=== PATIENT | male | born 1955 | race Two or more races ===

== ENCOUNTER 2025-01-17 21:45 | Inpatient (IN) | payer OTHER, MEDICAID ==
[~2025-01-17] VITALS: Ht 172.7 cm; Wt 79.2 kg
[2025-01-17] MEDS: SODIUM CHLORIDE 0.9% 1,000 ML IV ONE (22:50)
[2025-01-17 23:00] LABS: Hematocrit 40.1 % (41.0-53.0); Hemoglobin 13.4 g/dL (13.5-17.5); Mean Corpuscular Hemoglobin 31.5 pg (28.0-32.0); Mean Corpuscular Volume 94.5 fL (80.0-100.0); Nucleated Red Blood Cells % 0.1 %
[2025-01-17 23:08] LABS: Chloride 106 mmol/L (98-107); Potassium 4.1 mmol/L (3.5-5.1); Sodium 139 mmol/L (136-145)
[2025-01-17 23:09] LABS: Anion Gap 10 (5-15); Calcium 7.9 mg/dL (8.7-10.4); Carbon Dioxide 23 mmol/L (20-31)
[2025-01-17 23:14] LABS: BUN/Creatinine Ratio 5.8 (10.0-20.0); Glucose 98 mg/dL (74-106)
[2025-01-17 23:15] LABS: Blood Urea Nitrogen 7 mg/dL (9-23)
--- NOTE | 2025-01-17 23:27 | ED.PDOC ---
History of Present Illness HPI Comments 69 y/o M is BIBA from private residence for c/c of syncope. Significant history for anxiety, asthma, HLD, and HTN. Per EMS personnel report, patient had a sudden and unprovoked syncopal episode onset, while sitting and watching television with at home, an hour ago, this evening. is reported to have given the patient 1mg IM Narcan prior to arrival. On scene, patient was noted to have been hypotensive and bradycardic. At time of assessment, patient has no recollection of events aside from watching television and having no prior ailments or symptoms and feeling dizzy when coming-to en route to ED. No endorsed recent injuries, stressor, substance use, or additional pertinent lizzeth nts or history. He states, now, on feeling mildly weak but better. Denies any further acute symptoms. REVIEW OF SYSTEMS: General: No fever, no chills, HEENT: No neck pain, no blurred vision Cardiac: Syncope. No chest pain. No palpitations. Lungs: No shortness of breath, GI: No abdominal pain, no vomiting Musculoskeletal: No joint pain , no back pain Skin: No rash, no wound Neuro: Weakness. No headache, no dizziness, no syncope PHYSICAL EXAM: General: Awake, alert and oriented. No acute distress. Skin: Skin in warm, dry and intact without rashes or lesions. HEENT: The head is normocephalic and atraumatic. Conjunctivae are clear without exudates or hemorrhage. Sclera is non-icteric. Neck: Normal range of motion. No JVD. Cardiac: Regular rate Respiratory: No signs of respiratory distress. No Stridor. Extremities: Upper and lower extremities are atraumatic in appearance without deformity. Neurological: The patient is awake, alert and oriented to person, place, and time with normal speech. Speech is clear. There is no facial asymmetry. Psychiatric: Appropriate mood and affect. Good judgement and insight. Chief Complaint: Syncope Time Seen by MD: 22:30 Reviewed Notes: Nurses Notes, Boarder Steam Notes, Medications, Allergies Allergies: Coded Allergies: NO KNOWN ALLERGIES (Unverified , 01/17/25) Information Source: Patient, Emergency Med Personnel Mode of Arrival: EMS Severity: Moderate Timing: Hours Duration: Minutes Prehospital treatment: 12 Lead EKG, Accucheck, Scraper Tender, Other (Narcan ) Past Medical History PAST MEDICAL HISTORY: Anxiety (On diazepam), Asthma, High Lipids, HTN Surgical History (Other): back surgery Social History Smoker: Non-Smoker Alcohol: Occasionally Drugs: Denies Drug Use Lives In: Home Was a procedure done? Was a procedure done?: No EKG EKG : Pulse Rate (adult): 82 [place]: Normal Cardiac Rhythm: NSR Block: None Hypertrophy: None ST: Normal Differential Dx Considerations may include: Differential diagnoses considered include but are not limited to cardiac structural disease, arrhythmia, acute coronary syndrome, orthostasis, pulmonary embolism, dissection, seizure, basilar stroke, other. X-Ray, Labs, Meds, VS Vital Signs Date Time Temp Pulse Resp B/P (MAP) Pulse Ox O2 Delivery O2 Flow Rate FiO2 01/18/25 02:12 88 123/67 91 124/77 100 107/72 01/18/25 01:00 87 13 100/55 (70) 96 01/18/25 00:00 88 01/18/25 00:00 89 13 99/60 (73) 99 01/17/25 23:27 82 01/17/25 23:00 85 11 104/65 (78) 98 01/17/25 22:00 92 11 95/47 (63) 95 01/17/25 21:52 98.3 82 18 84/52 100 98.3 01/17/25 21:47 82 Lab Test 01/18/25 02:05 01/18/25 01:49 01/17/25 23:39 01/17/25 22:51 Range/Units Urine Color Light-yellow Yellow Urine Clarity Clear Clear Urine pH 5.5 5.0-9.0 Urine Specific [place] 1.007 1.001-1.035 Urine Protein Negative Negative Urine Ketones Trace Negative Urine Blood Negative Negative /uL Urine Nitrite Negative Negative Urine Bilirubin Negative Negative Urine Urobilinogen Normal Negative mg/dL Urine Leukocyte Esterase Negative Negative /uL Urine RBC None seen 0 - 3 /hpf Urine Microscopic WBC 1 0-3 /HPF Urine Squamous Epithelial Cells None seen <5 /hpf Urine Bacteria None seen None Seen /hpf Urine Glucose Normal Normal mg/dL Urine Opiates Screen Neg NEGATIVE Urine Fentanyl Screen Neg NEGATIVE Urine Barbiturates Screen Neg NEGATIVE Urine Phencyclidine Screen Neg NEGATIVE Urine Amphetamines Screen Neg NEGATIVE Urine Benzodiazepines Screen Pos NEGATIVE Urine Cocaine Screen Neg NEGATIVE Urine Cannabinoids Screen Pos NEGATIVE Troponin I High Sensitivity 3 L 3 L 4 </=54 ng/L Plasma/Serum Blood Alcohol 23.1 H <10 mg/dL Thyroid Stimulating Hormone (TSH) 6.76 H 0.55-4.78 uIU/mL White Blood Count 7.6 4.4-10.8 10^3/uL Red Blood Count 4.24 L 4.5-5.90 10^6/uL Hemoglobin 13.4 L 13.5-17.5 g/dL Hematocrit 40.1 L 41.0-53.0 % Mean Corpuscular Volume 94.5 80.0-100.0 fL Mean Corpuscular Hemoglobin 31.5 28.0-32.0 pg Mean Corpuscular Hemoglobin Concent 33.3 32.0-36.0 g/dL Red Cell Distribution Width 13.9 11.8-14.3 % Platelet Count 253 140-450 10^3/uL Mean Platelet Volume 6.8 L 6.9-10.8 fL Neutrophils (%) (Auto) 69.6 37.0-80.0 % Lymphocytes (%) (Auto) 21.6 10.0-50.0 % Monocytes (%) (Auto) 6.7 0.0-12.0 % Eosinophils (%) (Auto) 1.2 0.0-7.0 % Basophils (%) (Auto) 0.9 0.0-2.0 % Neutrophils # (Auto) 5.3 1.6-8.6 10 ^3/uL Lymphocytes # (Auto) 1.6 0.4-5.4 10 ^3/uL Monocytes # (Auto) 0.5 0-1.3 10 ^3/uL Eosinophils # (Auto) 0.1 0-0.8 10 ^3/uL Basophils # (Auto) 0.1 0-0.2 10 ^3/uL Nucleated Red Blood Cells 0.1 % Sodium Level 139 136-145 mmol/L Potassium Level 4.1 3.5-5.1 mmol/L Chloride Level 106 98-107 mmol/L Carbon Dioxide Level 23 20-31 mmol/L Anion Gap 10 5-15 Blood Urea Nitrogen 7 L 9-23 mg/dL Creatinine 1.21 0.700-1.30 mg/dL Glomerular Filtration Rate Calc 65 >90 mL/min BUN/Creatinine Ratio 5.8 L 10.0-20.0 Serum Glucose 98 74-106 mg/dL Calcium Level 7.9 L 8.7-10.4 mg/dL B-Type Natriuretic Peptide 18.83 0-100 pg/mL Current Medications Medications (Trade) Dose Ordered Sig/Gelacio Route Start Time Stop Time Status Last Admin Sodium Chloride 1,000 ml @ 1,000 mls/hr Q1H ONCE IV 01/17/25 22:45 01/17/25 23:44 DC 01/17/25 22:50 Time of 1ST Reevaluation: 23:00 Reevaluation 1ST: Unchanged Patient Education/Counseling: Treatment Family Education/Counseling: No Family Present SEPSIS Sepsis Screen Date sepsis recognized/suspect: Jan 17, 2025 Time Sepsis recognized/suspect: 2157 Recent Procedure: No On Antibiotic Therapy: No Respiratory Rate >20: No Heart Rate >90: No Temp<36 C (96.8 F) or >38.3 C: No SBP <90 or MAP <65 mmHG: Yes New Acute Mental Status Change: No Is the patient on CPAP, BIPAP,: No Physician Orders Scraper Tender (01/17/25 ) Orthostatic Vital Signs (01/17/25 ) Saline Lock (01/17/25 22:34) Fall Precautions Initiated (01/17/25 22:34) Chest Xray 1 View (01/18/25 01:03) Head Without Contrast (01/18/25 01:53) Vital Signs Date Time Temp Pulse Resp B/P (MAP) Pulse Ox O2 Delivery O2 Flow Rate FiO2 01/18/25 02:12 88 123/67 91 124/77 100 107/72 01/18/25 01:00 87 13 100/55 (70) 96 01/18/25 00:00 88 01/18/25 00:00 89 13 99/60 (73) 99 01/17/25 23:27 82 01/17/25 23:00 85 11 104/65 (78) 98 01/17/25 22:00 92 11 95/47 (63) 95 01/17/25 21:52 98.3 82 18 84/52 100 98.3 01/17/25 21:47 82 Laboratory Tests Test 01/17/25 22:51 White Blood Count 7.6 10^3/uL (4.4-10.8) Medications Medications Dose Ordered Sig/Gelacio Route Start Time Stop Time Status Last Admin Dose Admin Sodium Chloride 1,000 ml @ 1,000 mls/hr Q1H ONCE IV 01/17/25 22:45 01/17/25 23:44 DC 01/17/25 22:50 Departure 1 Departure Time of Disposition: 01:04 Impression: Primary Impression: Syncope Disposition: ADMITTED INPATIENT Condition: Stable Comments MDM: Patient admitted to hospitalist service for further treatment, evaluation and monitoring. Critical Care Note Critical Care Time?: No Stability Stability form required: No Heart Score Heart Score: Heart Score Response (Comments) Value History N/A 0 EKG N/A 0 Age N/A 0 Risk Factors N/A 0 Troponin N/A 0 Total 0 I personally scribed for NORMA JAY MD ([email or web address]) on 01/17/25 at 23:27. Electronically submitted by Kamaljit Nielson ([email or web address]). I personally scribed for NORMA JAY MD ([email or web address]) on 01/17/25 at 23:29. Electronically submitted by Kamaljit Nielson ([email or web address]). NORMA JAY MD Jan 17, 2025 23:27
[2025-01-18] VITALS (10 sets, daily range): BP systolic 101–133; BP diastolic 70–86; PULSE 67–92; RESP 16–18; TEMP 97.3–98.5; O2SAT 92–99
--- NOTE | 2025-01-18 01:29 | DVH ---
CHEST RADIOGRAPH Indication: Syncope Technique: Single frontal view of the chest was obtained COMPARISON: XY CHEST PORTABLE on DOS: 08/19/22, CHEST TWO VIEWS ROUTINE on DOS: 01/07/20 FINDINGS: Lines and Tubes: None Lungs: Clear Pleura: No effusion. No pneumothorax. Cardiomediastinal contours: Unremarkable Bones: Unremarkable IMPRESSION: 1. No acute disease.
[2025-01-18] MEDS: MIDODRINE HCL 10 MG TAB PO ONE (02:29)
--- NOTE | 2025-01-18 02:34 | DVH ---
EXAM: CT HEAD WITHOUT CONTRAST INDICATION: syncope TECHNIQUE: CT of the head without intravenous contrast. Radiation Dose : 1. Head: CT Dose: CTDI volume is 60.16 mGy. Dose-length product is 843.98 mGy*cm The dose indicators for CT are the volume Computed Tomography (CT) Dose Index (CTDIvol) and the Dose Length Product (DLP), and are measured in units of mGy and mGy-cm, respectively. These indicators are not patient dose, but values generated from the CT scanner acquisition factors. The report includes radiation exposure data for exposures received during this examination. COMPARISON: CT HEAD WITHOUT CONTRAST on DOS: 08/19/22, BRAIN HEAD WO CONTRAST on DOS: 08/26/19, HEAD WIT HOUT CONTRAST on DOS: 08/24/19 FINDINGS: There is no evidence of acute intracranial hemorrhage, extra-axial collection, mass effect, midline s hift, herniation or hydrocephalus. The ventricles, sulci and cisterns are age appropriate. The lopez-white differentiation is intact. Patchy periventricular and subcortical white matter hypoattenuation is nonspecific but may be related to small vessel ischemic disease. The visualized paranasal sinuses and mastoid air cells are clear. The surrounding soft tissues and osseous structures are unremarkable. IMPRESSION: 1. No acute intracranial abnormality. Radiation optimization: All CT scans at this facility use at least one of these dose optimization cydney hniques: automated exposure control mA and/or kV adjustment per patient size (includes targeted exam s where dose is matched to clinical indication) or iterative reconstruction.
[2025-01-18 03:04] LABS: Urine Protein, UAD Negative (Negative)
[2025-01-18 03:11] LABS: Opiate Scree,Urine Neg (NEGATIVE)
[2025-01-18 03:12] LABS: Amphetamine Screen, Urine Neg (NEGATIVE); Barbiturate Scree,Urine Neg (NEGATIVE); Benzodiazephine Screen, Urine Pos (NEGATIVE); Cannabinoid Screen, Urine Pos (NEGATIVE); Cocaine Screen, Urine Neg (NEGATIVE); Phencyclidine Screen, Urine Neg (NEGATIVE)
--- NOTE | 2025-01-18 03:36 | ECG ---
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
--- NOTE | 2025-01-18 04:12 | DVHHP2 ---
History of Present Illness Reason for Visit: Syncope History of Present Illness 69-year-old male presents for evaluation of syncopal episode. Patient presents after having a syncopal episode while watching TV. Patient does not remember how he ended up in the emergency department. Patient arrived with a blood pressure in the 60s. Currently denies chest pain or dizziness. Reports generalized weakness. No other acute complaints reported. Past Medical History Asthma, dyslipidemia and hypertension Past Surgical History Back surgery Family History Noncontributory Smoke: No ALCOHOL: none Drugs: Marijuana Lives: with Family Review of Systems Review of Systems Review of systems are currently negative otherwise addressed in HPI. Allergies: Coded Allergies: NO KNOWN ALLERGIES (Unverified , 01/17/25) Medications Current Medications Medications Dose Ordered Sig/Gelacio Route Start Time Stop Time Status Last Admin Dose Admin Albuterol 2.5 mg Q6HPRN PRN NEB 01/18/25 04:15 Ondansetron HCl 4 mg Q4HP PRN IV 01/18/25 04:15 Acetaminophen 650 mg Q6HP PRN PO 01/18/25 04:15 Exam Vital Signs Vital Signs Date Time Temp Pulse Resp B/P (MAP) Pulse Ox O2 Delivery O2 Flow Rate FiO2 01/18/25 02:48 89 17 Room Air* 0 21 01/18/25 02:48 97.8 128/79 (95) 99 97.8 Exam Gen: 69-year-old male in mild distress Skin: Warm, dry, normal color and texture, no rash. HEENT: Normocephalic atraumatic, mucous membranes moist and pink. Neck: Cervical and supraclavicular nodes normal without enlargement, trachea is midline, thyroid gland is normal without masses. Pulmonary: Clear to auscultation and percussion bilaterally. Cardiac: Regular rate and rhythm. No murmur Abdomen: Soft, nontender, nondistended, bowel sounds present all 4 quadrants, no guarding, no rigidity, no organomegaly. Extremities: No cyanosis, clubbing, no edema Neuro: Cranial nerves II through XII grossly intact, normal affect and speech, no focal motor deficits. Labs/Xrays ORDERING PHYSICIAN: DIRK ALMAZAN PROCEDURE(s): HWOCT - HEAD WITHOUT CONTRAST REASON: syncope ORDER NUMBER(s): [id number], ACCESSION NUMBER(s): [id number] EXAM: CT HEAD WITHOUT CONTRAST INDICATION: syncope TECHNIQUE: CT of the head without intravenous contrast. Radiation Dose : 1. Head: CT Dose: CTDI volume is 60.16 mGy. Dose-length product is 843.98 mGy*cm The dose indicators for CT are the volume Computed Tomography (CT) Dose Index (CTDIvol) and the Dose Length Product (DLP), and are measured in units of mGy and mGy-cm, respectively. These indicators are not patient dose, but values generated from the CT scanner acquisition factors. The report includes radiation exposure data for exposures received during this examination. COMPARISON: CT HEAD WITHOUT CONTRAST on DOS: 08/19/22, BRAIN HEAD WO CONTRAST on DOS: 08/26/19, HEAD WITHOUT CONTRAST on DOS: 08/24/19 FINDINGS: There is no evidence of acute intracranial hemorrhage, extra-axial collection, mass effect, midline shift, herniation or hydrocephalus. The ventricles, sulci and cisterns are age appropriate. The lopez-white differentiation is intact. Patchy periventricular and subcortical white matter hypoattenuation is nonspecific but may be related to small vessel ischemic disease. The visualized paranasal sinuses and mastoid air cells are clear. The surrounding soft tissues and osseous structures are unremarkable. IMPRESSION: 1. No acute intracranial abnormality. Radiation optimization: All CT scans at this facility use at least one of these dose optimization techniques: automated exposure control mA and/or kV adjustment per patient size (includes targeted exams where dose is matched to clinical indication) or iterative reconstruction. RING PHYSICIAN: NORMA JAY MD PROCEDURE(s): CXR1 - CHEST XRAY 1 VIEW REASON: Syncope ORDER NUMBER(s): [id number], ACCESSION NUMBER(s): [id number] CHEST RADIOGRAPH Indication: Syncope Technique: Single frontal view of the chest was obtained COMPARISON: XY CHEST PORTABLE on DOS: 08/19/22, CHEST TWO VIEWS ROUTINE on DOS: 01/07/20 FINDINGS: Lines and Tubes: None Lungs: Clear Pleura: No effusion. No pneumothorax. Cardiomediastinal contours: Unremarkable Bones: Unremarkable IMPRESSION: 1. No acute disease. Labs Test 01/18/25 02:05 01/18/25 01:49 01/17/25 23:39 01/17/25 22:51 Range/Units Urine Color Light-yellow Yellow Urine Clarity Clear Clear Urine pH 5.5 5.0-9.0 Urine Specific [place] 1.007 1.001-1.035 Urine Protein Negative Negative Urine Ketones Trace Negative Urine Blood Negative Negative /uL Urine Nitrite Negative Negative Urine Bilirubin Negative Negative Urine Urobilinogen Normal Negative mg/dL Urine Leukocyte Esterase Negative Negative /uL Urine RBC None seen 0 - 3 /hpf Urine Microscopic WBC 1 0-3 /HPF Urine Squamous Epithelial Cells None seen <5 /hpf Urine Bacteria None seen None Seen /hpf Urine Glucose Normal Normal mg/dL Urine Opiates Screen Neg NEGATIVE Urine Fentanyl Screen Neg NEGATIVE Urine Barbiturates Screen Neg NEGATIVE Urine Phencyclidine Screen Neg NEGATIVE Urine Amphetamines Screen Neg NEGATIVE Urine Benzodiazepines Screen Pos NEGATIVE Urine Cocaine Screen Neg NEGATIVE Urine Cannabinoids Screen Pos NEGATIVE Troponin I High Sensitivity 3 L </=54 ng/L Plasma/Serum Blood Alcohol 23.1 H <10 mg/dL Thyroid Stimulating Hormone (TSH) 6.76 H 0.55-4.78 uIU/mL White Blood Count 7.6 4.4-10.8 10^3/uL Red Blood Count 4.24 L 4.5-5.90 10^6/uL Hemoglobin 13.4 L 13.5-17.5 g/dL Hematocrit 40.1 L 41.0-53.0 % Mean Corpuscular Volume 94.5 80.0-100.0 fL Mean Corpuscular Hemoglobin 31.5 28.0-32.0 pg Mean Corpuscular Hemoglobin Concent 33.3 32.0-36.0 g/dL Red Cell Distribution Width 13.9 11.8-14.3 % Platelet Count 253 140-450 10^3/uL Mean Platelet Volume 6.8 L 6.9-10.8 fL Neutrophils (%) (Auto) 69.6 37.0-80.0 % Lymphocytes (%) (Auto) 21.6 10.0-50.0 % Monocytes (%) (Auto) 6.7 0.0-12.0 % Eosinophils (%) (Auto) 1.2 0.0-7.0 % Basophils (%) (Auto) 0.9 0.0-2.0 % Neutrophils # (Auto) 5.3 1.6-8.6 10 ^3/uL Lymphocytes # (Auto) 1.6 0.4-5.4 10 ^3/uL Monocytes # (Auto) 0.5 0-1.3 10 ^3/uL Eosinophils # (Auto) 0.1 0-0.8 10 ^3/uL Basophils # (Auto) 0.1 0-0.2 10 ^3/uL Nucleated Red Blood Cells 0.1 % Sodium Level 139 136-145 mmol/L Potassium Level 4.1 3.5-5.1 mmol/L Chloride Level 106 98-107 mmol/L Carbon Dioxide Level 23 20-31 mmol/L Anion Gap 10 5-15 Blood Urea Nitrogen 7 L 9-23 mg/dL Creatinine 1.21 0.700-1.30 mg/dL Glomerular Filtration Rate Calc 65 >90 mL/min BUN/Creatinine Ratio 5.8 L 10.0-20.0 Serum Glucose 98 74-106 mg/dL Calcium Level 7.9 L 8.7-10.4 mg/dL B-Type Natriuretic Peptide 18.83 0-100 pg/mL SEPSIS Sepsis Screen Date sepsis recognized/suspect: Jan 17, 2025 Time Sepsis recognized/suspect: 2340 Recent Procedure: No On Antibiotic Therapy: No Respiratory Rate >20: No Heart Rate >90: No Temp<36 C (96.8 F) or >38.3 C: No SBP <90 or MAP <65 mmHG: No New Acute Mental Status Change: No Is the patient on CPAP, BIPAP,: No Physician Orders Furnace Roaster (01/17/25 ) Orthostatic Vital Signs (01/17/25 ) Saline Lock (01/17/25 22:34) Fall Precautions Initiated (01/17/25 22:34) Chest Xray 1 View (01/18/25 01:03) Head Without Contrast (01/18/25 01:53) Admit (01/18/25 02:13) Echo 2d Mode Cardiac Dop (01/18/25 02:13) Thyroid Panel (01/18/25 04:02) Basic Metabolic Panel (01/19/25 04:00) Albuterol Medneb (Ventolin Medneb) (01/18/25 04:15) Ondansetron Hcl (Zofran) (01/18/25 04:15) Cardiac Diet-2gna,Lofat,Lochol (01/18/25 Breakfast) Condition: Stable (01/18/25 04:02) Acetaminophen Tablet (Tylenol Tablet) (01/18/25 04:15) Bedrest With Bathroom Privileg (01/18/25 04:02) Vital Signs Date Time Temp Pulse Resp B/P (MAP) Pulse Ox O2 Delivery O2 Flow Rate FiO2 01/18/25 02:48 89 17 Room Air* 0 21 01/18/25 02:48 97.8 89 17 128/79 (95) 99 97.8 01/18/25 02:15 89 16 107/72 (84) 97 01/18/25 02:12 88 123/67 91 124/77 100 107/72 01/18/25 01:00 87 13 100/55 (70) 96 01/18/25 00:00 88 01/18/25 00:00 89 13 99/60 (73) 99 01/17/25 23:27 82 01/17/25 23:00 85 11 104/65 (78) 98 01/17/25 22:00 92 11 95/47 (63) 95 01/17/25 21:52 98.3 82 18 84/52 100 98.3 01/17/25 21:47 82 Laboratory Tests Test 01/17/25 22:51 White Blood Count 7.6 10^3/uL (4.4-10.8) Medications Medications Dose Ordered Sig/Gelacio Route Start Time Stop Time Status Last Admin Dose Admin Midodrine 10 mg ONCE ONCE PO 01/18/25 02:15 01/18/25 02:18 DC 01/18/25 02:29 10 MG Sodium Chloride 1,000 ml @ 1,000 mls/hr Q1H ONCE IV 01/17/25 22:45 01/17/25 23:44 DC 01/17/25 22:50 1,000 MLS/HR Assessment/Plan Assessment/Plan Assessment Symptomatic hypotension Hypothyroid Alcohol intoxication Plan Admit the patient to [facility] to the hospitalist Echocardiogram pending Thyroid panel pending Continue treatment per orders. Plan discussed with: Patient My Orders Orders - DIRK ALMAZANCNLit Procedure Category Date Status Time Head Without Contrast CT 01/18/25 Resulted 01:53 Admit ADMIT 01/18/25 Transmitted 02:13 Echo 2d Mode Cardiac US 01/18/25 Logged DOP 02:13 Thyroid Panel LAB 01/18/25 Logged 04:02 Basic Metabolic Panel LAB 01/19/25 Verified 04:00 Albuterol Medneb PHA 01/18/25 In Process (Ventolin Medneb) 04:15 Ondansetron Hcl PHA 01/18/25 In Process (Zofran) 04:15 Cardiac DIET 01/18/25 Transmitted Diet-2gna,Lofat,Lochol Breakfast Condition: Stable DIONNA 01/18/25 In Process 04:02 Acetaminophen Tablet PHA 01/18/25 In Process (Tylenol Tablet) 04:15 Bedrest With Bathroom DIONNA 01/18/25 In Process Privileg 04:02 Date of Service: Jan 18, 2025 Billing Provider: DIRK ALMAZAN Common Visit Codes: [id number] INP/OBS CARE (HIGH) DIRK ALMAZAN Jan 18, 2025 04:12
[2025-01-18] MEDS ORDERED: ONDANSETRON HCL 4 MG/2 ML VIAL IV PRN (04:15)
[2025-01-18] MEDS ORDERED: ACETAMINOPHEN 325 MG TAB PO PRN (04:15)
[2025-01-18] MEDS ORDERED: ALBUTEROL SULF 2.5 MG/0.5ML(0.5%) NEB SOLN NEB PRN (04:15)
[2025-01-18] MEDS: LEVOTHYROXINE SODIUM 25 MCG TAB PO SCH (06:30)
--- NOTE | 2025-01-18 14:03 | DVHPN2 ---
Assessment/Plan Assessment/Plan progress note 69 M with anxiety, HTN, admitted for syncope. pt was taking diazepam friday, [place] Friday and Friday night drink 3 beers before he syncopized. taking cozaar 50 BID. hypotensive on admission. orthostatic negative seen today, will hold bp meds benzo. physical exam aox4 clear breath sounds s1 s2 rrr abdomen nontender no LE edema labs ekg imaging reviewed assessment and plan HTN anxiety syncope likely med related alcohol use hypothyroidism? t3 t4 hold bp meds will start lower dose hold benzo diet cardiac dvt ppx lvoenox full code Plan discussed with: Patient Date of Service: Jan 18, 2025 Billing Provider: RACHEL LUONG MD Common Visit Codes: [id number] INP/OBS CARE(HIGH) RACHEL LUONG MD Jan 18, 2025 14:03
--- NOTE | 2025-01-18 21:59 | DVHSR ---
APPROVED REPORT EXAM: Two-dimensional and M-mode echocardiogram with Doppler and color Doppler. Blood Pressure: 128/79 mmHg INDICATION hypotension RISK FACTORS Height: 5'8, Weight: 171 DIMENSIONS LVDd4.6 (3.8-5.7cm)LA (2D)3.2 (1.9-4.0cm)Aortic Root3.3 (2.0-3.7cm) LVDs3.3 (2.5-4.0cm)LA (MM) (1.9-4.0cm)Aortic Cusp Exc1.8 (1.5-2.0cm) EF (%) 55.0 (55-70%)Rt. Atrium3.4 (1.9-4.0cm)Asc. Aorta3.0 cm IVSd0.8 (0.7-1.1cm)RV (D)3.4 (1.8-2.4cm) PWd1.0 (0.7-1.1cm) Mitral Valve MitralMitral Stenosis E wave0.67m/sMV Mean GR.mmHg A wave0.88m/sMV Peak GR.mmHg E/A ratio0.82D MVAcm2 DECEL [id number] 1/2 Timems Aortic Valve Aortic ValveAortic Stenosis V10.93m/Sy Mean GR.3mmHg V21.15m/Sy Peak GR.5mmHg LVOT Diameter2.1 (1.8-2.4cm)Doppler AVA2.80cm2 Pulmonic Valve V20.90m/s Other Information Technically limited study due to body habitus. Conclusion RA AND RV ARE SLIGHTLY DILATED LV EF IS 65% NORMAL VALVES NO EFFUSION
[2025-01-19] VITALS (8 sets, daily range): BP systolic 100–150; BP diastolic 72–88; PULSE 70–92; RESP 17–19; TEMP 97.5–98.6; O2SAT 93–99
[2025-01-19 07:14] LABS: Anion Gap 8 (5-15); Carbon Dioxide 27 mmol/L (20-31); Chloride 105 mmol/L (98-107); Potassium 4.0 mmol/L (3.5-5.1); Sodium 140 mmol/L (136-145)
[2025-01-19 07:16] LABS: Calcium 8.7 mg/dL (8.7-10.4)
[2025-01-19 07:17] LABS: Hematocrit 37.9 % (41.0-53.0); Hemoglobin 12.8 g/dL (13.5-17.5); Mean Corpuscular Hemoglobin 31.1 pg (28.0-32.0); Mean Corpuscular Volume 92.1 fL (80.0-100.0); Nucleated Red Blood Cells % 0.1 %
[2025-01-19 07:19] LABS: Glucose 88 mg/dL (74-106)
[2025-01-19 07:20] LABS: BUN/Creatinine Ratio 6.7 (10.0-20.0)
[2025-01-19 07:21] LABS: Blood Urea Nitrogen 6 mg/dL (9-23); Magnesium 2.1 mg/dL (1.6-2.6)
[2025-01-19 08:07] LABS: Free Thyroxine Index 1.3 (1.2-4.9)
--- NOTE | 2025-01-19 11:31 | DVHPN2 ---
Assessment/Plan Assessment/Plan progress note 69 M with anxiety, HTN, admitted for syncope. pt was taking diazepam friday, [place] Friday and Friday night drink 3 beers before he syncopized. taking cozaar 50 BID. hypotensive on admission. orthostatic negative seen today, bp improved. had hx of thyroid nodule, will redo us thyroid. continueing 25 mcg for now. physical exam aox4 clear breath sounds s1 s2 rrr abdomen nontender no LE edema labs ekg imaging reviewed assessment and plan HTN anxiety syncope likely med related alcohol use hypothyroidism? alergic rhinitis t3 t4 hold bp meds will start lower dose hold benzo us thyroid flonase diet cardiac dvt ppx lvoenox full code Plan discussed with: Patient Date of Service: Jan 19, 2025 Billing Provider: RACHEL LUONG MD Common Visit Codes: [id number] INP/OBS CARE(HIGH) RACHEL LUONG MD Jan 19, 2025 11:31
[2025-01-19] MEDS: LEVOTHYROXINE SODIUM 25 MCG TAB PO ONE (11:59)
--- NOTE | 2025-01-19 13:27 | DVH ---
ULTRASOUND SOFT TISSUE HEAD AND NECK CLINICAL INDICATION: hx of nodule TECHNIQUE: Multiple real time sonographic images of the thyroid were obtained. Comparison: US CAROTID DUPLX W COLOR DOP on DOS: 08/19/22, CAROTID DUPLX W COLOR DOP on DOS: 01/08/20 FINDINGS: The right thyroid gland measures 4.5 x 1.4 x 1.5 cm. The left thyroid gland measures approximately 4.1 x 1.7 x 1.7 cm. The isthmus measures 0.5 cm. Isoechoic 0.9 cm nodule in the left midpole, TR 3. IMPRESSION: 0.9 cm TR 3 nodule in the left midpole. [employer] TI-RADS Categories and Recommendations (2017): TR1: 0 points, Benign, No FNA TR2: 2 points, Not suspicious, No FNA TR3: 3 points, Mildly suspicious, FNA if > or = 2.5 cm, Follow if > or = 1.5 cm TR4: 4-6 points, Moderately Suspicious, FNA if > or = 1.5 cm, Follow if > or = 1.0 cm TR5: 7+ points, Highly Suspicious, FNA if > or = 1.0 cm, Follow if > or = 0.5 cm Follow-up ultrasound guidelines: TR5: yearly for 5 years, if no growth or change in TI-RADS level TR4: at 1, 2, 3 and 5 years, if no growth or change in TI-RADS level TR3: at 1, 3 and 5 years, if no growth or change in TI-RADS level If increased but below threshold for FNA, repeat in one year. Source: ACR Thyroid Imaging, Reporting and Data System (TI-RADS): White Paper of the A[employer] TI-RADS Committee. Loli et al., J Am Katelynn Radiol 2017;14:587-595.
[2025-01-19] MEDS: FLUTICASONE PROP NASAL SPR 0.05 % (50MCG) 16GM EACHNOSTRI SCH (21:20)
[2025-01-20 01:00] VITALS: BP 127/67; PULSE 77; RESP 18; TEMP 98.5; O2SAT 97
[2025-01-20 05:00] VITALS: BP 119/77; PULSE 76; RESP 18; TEMP 98.1; O2SAT 96
[2025-01-20] MEDS: LEVOTHYROXINE SODIUM 25 MCG TAB PO SCH (05:38)
[2025-01-20 08:00] VITALS: RESP 18
[2025-01-20 08:11] VITALS: O2SAT 98
[2025-01-20 09:00] VITALS: BP 142/78; PULSE 70; RESP 18; TEMP 98.4; O2SAT 97
[2025-01-20] MEDS ORDERED: LEVO25TA6 PO (11:12)
[2025-01-20 11:30] VITALS: TEMP 36.9
--- NOTE | 2025-01-21 11:08 | DVHDS2 ---
Discharge Summary Date of Admission Jan 18, 2025 at 02:13 Date of Discharge: Jan 20, 2025 Labs/Diagnostic Data: Laboratory Results Test 01/19/25 05:55 01/18/25 05:26 01/18/25 02:05 01/18/25 01:49 White Blood Count 6.1 10^3/uL (4.4-10.8) Red Blood Count 4.11 10^6/uL (4.5-5.90) Hemoglobin 12.8 g/dL (13.5-17.5) Hematocrit 37.9 % (41.0-53.0) Mean Corpuscular Volume 92.1 fL (80.0-100.0) Mean Corpuscular Hemoglobin 31.1 pg (28.0-32.0) Mean Corpuscular Hemoglobin Concent 33.8 g/dL (32.0-36.0) Red Cell Distribution Width 14.0 % (11.8-14.3) Platelet Count 259 10^3/uL (140-450) Mean Platelet Volume 7.3 fL (6.9-10.8) Neutrophils (%) (Auto) 62.3 % (37.0-80.0) Lymphocytes (%) (Auto) 28.0 % (10.0-50.0) Monocytes (%) (Auto) 7.0 % (0.0-12.0) Eosinophils (%) (Auto) 1.5 % (0.0-7.0) Basophils (%) (Auto) 1.2 % (0.0-2.0) Neutrophils # (Auto) 3.8 10 ^3/uL (1.6-8.6) Lymphocytes # (Auto) 1.7 10 ^3/uL (0.4-5.4) Monocytes # (Auto) 0.4 10 ^3/uL (0-1.3) Eosinophils # (Auto) 0.1 10 ^3/uL (0-0.8) Basophils # (Auto) 0.1 10 ^3/uL (0-0.2) Nucleated Red Blood Cells 0.1 % Sodium Level 140 mmol/L (136-145) Potassium Level 4.0 mmol/L (3.5-5.1) Chloride Level 105 mmol/L (98-107) Carbon Dioxide Level 27 mmol/L (20-31) Anion Gap 8 (5-15) Blood Urea Nitrogen 6 mg/dL (9-23) Creatinine 0.89 mg/dL (0.700-1.30) Glomerular Filtration Rate Calc 93 mL/min (>90) BUN/Creatinine Ratio 6.7 (10.0-20.0) Serum Glucose 88 mg/dL (74-106) Calcium Level 8.7 mg/dL (8.7-10.4) Phosphorus Level 2.5 mg/dL (2.4-5.1) Magnesium Level 2.1 mg/dL (1.6-2.6) Free Thyroxine Index 1.3 (1.2-4.9) Thyroxine (T4) 4.6 ug/dL (4.5-12.0) Triiodothyronine (T3) Uptake 29 % (24-39) Urine Color Light-yellow (Yellow) Urine Clarity Clear (Clear) Urine pH 5.5 (5.0-9.0) Urine Specific [place] 1.007 (1.001-1.035) Urine Protein Negative (Negative) Urine Ketones Trace (Negative) Urine Blood Negative /uL (Negative) Urine Nitrite Negative (Negative) Urine Bilirubin Negative (Negative) Urine Urobilinogen Normal mg/dL (Negative) Urine Leukocyte Esterase Negative /uL (Negative) Urine RBC None seen /hpf (0 - 3) Urine Microscopic WBC 1 /HPF (0-3) Urine Squamous Epithelial Cells None seen /hpf (<5) Urine Bacteria None seen /hpf (None Seen) Urine Glucose Normal mg/dL (Normal) Urine Opiates Screen Neg (NEGATIVE) Urine Fentanyl Screen Neg (NEGATIVE) Urine Barbiturates Screen Neg (NEGATIVE) Urine Phencyclidine Screen Neg (NEGATIVE) Urine Amphetamines Screen Neg (NEGATIVE) Urine Benzodiazepines Screen Pos (NEGATIVE) Urine Cocaine Screen Neg (NEGATIVE) Urine Cannabinoids Screen Pos (NEGATIVE) Troponin I High Sensitivity 3 ng/L (</=54) Plasma/Serum Blood Alcohol 23.1 mg/dL (<10) Test 01/17/25 23:39 01/17/25 22:51 Thyroid Stimulating Hormone (TSH) 6.76 uIU/mL (0.55-4.78) B-Type Natriuretic Peptide 18.83 pg/mL (0-100) Other Laboratory Tests 01/19/25 05:55 Brief Hx & Hospital Course: 69 M with anxiety, HTN, admitted for syncope. pt was taking diazepam nesha, [place] Friday and Friday night drink 3 beers before he syncopized. taking cozaar 50 BID. hypotensive on admission. orthostatic negative. during admission, bp meds held, bp further improved. symptoms resolved. likely related to polypharmacy. discharged on losartan once a day instead of BID. f/u w pcp, reinforced abstinence Condition at Discharge: Stable Final Diagnosis/Problems List HTN anxiety syncope likely med related alcohol use hypothyroidism? alergic rhinitis Discharge Disposition: Home Discharge Instruct/Medications Diet: Consistent carbohydrate, Cardiac 2g Na,low cholest Activity: No Restrictions, As Tolerated Follow Up/Referral: pcp Medications: levothyroxine 25mg daily losartan 50mg DAILY Scheduled Levothyroxine Sodium (Levothyroxine Sodium), 25 MCG PO QAM@0600 Discharge Statement: "Patient was advised to return to the ER or call 911 if any headaches, dizziness, shortness of breath, chest pain, abdominal pain, bleeding, fevers, or worsening of medical condition. Patient was counseled about treatment plan, medications, possible side effects, patientverbalized understanding. All questions were answered to the best of my ability. This discharge took greater then 30 minutes in planning, reviewing documentation, counseling the patient, and discussing with other team members." ASSESSMENT ASSESSMENT Assessment syncope 2/2 hypothyroid? iatrogenic hypotension benzo and alcohol use Date of Service: Jan 20, 2025 Billing Provider: RACHEL LUONG MD Common Visit Codes: 71432-ELC/OBS DISCH DAY >30min RACHEL LUONG MD Jan 20, 2025 11:14
== END 2025-01-20 14:03 | disposition home or self-care (01) | DRG 312 ==
LOC: ER 21:45 → EDBD 21:45 → OVERFLOW 01-18 02:13 → WEST WING 01-18 02:49
PROVIDERS: ADMIT Student in an Organized Health Care Education/Training Program; ATTEND Student in an Organized Health Care Education/Training Program
DX: I95.2 Hypotension due to drugs (principal); E03.9 Hypothyroidism, unspecified; F10.129 Alcohol abuse with intoxication, unspecified; I10 Essential (primary) hypertension; E78.5 Hyperlipidemia, unspecified; T42.4X5A Adverse effect of benzodiazepines, initial encounter; F41.9 Anxiety disorder, unspecified; J30.9 Allergic rhinitis, unspecified; Y90.9 Presence of alcohol in blood, level not specified; Z79.899 Other long term (current) drug therapy
CPT/HCPCS: 36415; 70450; 71045; 76536; 80048; 80307; 80320; 81001; 83735; 83880; 84100; 84443; 84484; 85025; 93005; 93306; 96360; G0378